=== PATIENT | male | born 1965 | race Caucasian/White ===

== ENCOUNTER 2020-03-22 21:18 | Emergency (ER) | payer MEDICAID ==
[~2020-03-22] VITALS: Ht 170.2 cm; Wt 106.6 kg
[2020-03-22 21:39] VITALS: BP 163/92
[2020-03-22] MEDS ORDERED: ONDANSETRON HCL/PF 4 MG/2 ML VIAL IVP ONE (22:30)
[2020-03-22] MEDS ORDERED: IV NS 0.9% 1,000 ML BAG IV ONE (22:30)
[2020-03-22] MEDS ORDERED: MORPHINE SULFATE INJ 2 MG/ML DISP.SYRIN IV ONE (22:30)
[2020-03-22] MEDS ORDERED: ONDANSETRON HCL/PF 4 MG/2 ML VIAL ONE (22:35)
[2020-03-22] MEDS ORDERED: MORPHINE SULFATE INJ 4 MG/ML DISP.SYRIN ONE (22:35)
--- NOTE | 2020-03-22 23:44 | NUR ---
Patient discharged to home in stable condition. Written and verbal after care instructions given. Patient verbalizes understanding of instruction.pt. ambulatory with a steady gait
== END 2020-03-22 23:45 | disposition home or self-care (01) ==
LOC: ER 21:18
DX: K64.4 Residual hemorrhoidal skin tags (principal); I10 Essential (primary) hypertension; Z98.890 Other specified postprocedural states
CPT/HCPCS: 96361; 96374; 96375; 99284; J2270; J2405; J7030